=== PATIENT | female | born 1975 | race Caucasian/White ===

== ENCOUNTER 2016-12-08 17:07 | Emergency (ER) | payer OTHER ==
[~2016-12-08] VITALS: Ht 177.8 cm; Wt 65.0 kg
[2016-12-08] MEDS ORDERED: TRI-SPRINTEC1 EACH PO (17:31)
[2016-12-08] MEDS ORDERED: NAPROSYN500 MG PO (19:18)
[2016-12-08] MEDS ORDERED: FLEXERIL10 MG PO (19:18)
[2016-12-08 19:32] VITALS: BP 127/82
== END 2016-12-08 19:32 | disposition home or self-care (01) ==
LOC: EME 17:07
DX: M54.12 Radiculopathy, cervical region (principal)
CPT/HCPCS: 72040; 99281; 99284; J1885